=== PATIENT | female | born 1975 | race Caucasian/White ===

== ENCOUNTER 2023-11-04 18:49 | Emergency (ER) | payer SELFPAY ==
[~2023-11-04] VITALS: Ht 157.5 cm; Wt 70.9 kg
[2023-11-04] MEDS ORDERED: Acetaminophen 500 MG TAB PO ONE (19:30)
[2023-11-04] MEDS ORDERED: NS 1,000 ML IV ONE (19:30)
[2023-11-04] MEDS ORDERED: Ketorolac 30 MG/ML VIAL IV ONE (19:30)
[2023-11-04 19:44] LABS: URINE APPEARANCE TURBID (CLEAR/HAZY); URINE BLOOD 2+ (NEGATIVE); URINE COLOR YELLOW (YELLOW); URINE GLUCOSE NEGATIVE (NEGATIVE); URINE KETONE NEGATIVE (NEGATIVE); URINE NITRATE NEGATIVE (NEGATIVE); URINE PROTEIN(semi-quant) TRACE (NEGATIVE); URINE UROBILINOGEN 0.2 E.U/dL (0.2-1.0)
[2023-11-04 19:48] LABS: COLLECTION METHOD CLEAN CATCH
[2023-11-04 20:15] LABS: ALBUMIN 3.4 g/dL (3.5-5.0); BILIRUBIN,TOTAL 0.2 mg/dL (0.2-1.2); C-REACTIVE PROTEIN 0.04 mg/dL (0.00-0.50); CREATININE, serum 0.78 mg/dL (0.57-1.11); POTASSIUM 4.4 mEq/L (3.5-4.5); TOTAL PROTEIN 6.7 g/dl (6.2-8.1)
[2023-11-04] MEDS ORDERED: UROXATRAL10 M1 PO (21:37)
[2023-11-04] MEDS ORDERED: NAPROSYN500 MG PO (21:39)
[2023-11-04] MEDS ORDERED: Home oxyCODONE/Acetaminophen 5/325 MG #4 TAB/PACK PO ONE (21:45)
[2023-11-04] MEDS ORDERED: Home Ondansetron ODT 4 MG #2 ODT/PACK PO ONE (21:45)
[2023-11-04 21:50] VITALS: BP 145/95; PULSE 78; TEMP 98.2
== END 2023-11-04 21:53 | disposition home or self-care (01) ==
LOC: COL.ER 18:49
PROVIDERS: Emergency Medicine
DX: N13.2 Hydronephrosis with renal and ureteral calculous obstruction (principal); F17.210 Nicotine dependence, cigarettes, uncomplicated; F17.290 Nicotine dependence, other tobacco product, uncomplicated